=== PATIENT | female | born 1965 | race Two or more races ===

== ENCOUNTER 2017-09-23 18:28 | Emergency (ER) | payer OTHER ==
[~2017-09-23] VITALS: Ht 152.4 cm; Wt 86.2 kg
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
[2017-09-23] MEDS ORDERED: Ketorolac 30mg Inj IM ONE (19:00)
[2017-09-23] MEDS ORDERED: TYLENOL EXTRA500 MG ORAL (19:31)
[2017-09-23 19:40] VITALS: BP 150/95
--- NOTE | 2017-09-24 08:50 | Diagnostic Imaging Report ---
Indication: Foot pain Technique: 3 views left foot Comparison: None Findings: No acute fractures. No dislocations. Joint spaces are preserved. There is a plantar spur. Well-corticated ossific density adjacent to the cuboid is consistent with an accessory ossicle Impression: Negative
== END 2017-09-23 19:40 | disposition home or self-care (01) ==
LOC: EMR 19:09
DX: S92.902A Unspecified fracture of left foot, initial encounter for closed fracture (principal); Z88.1 Allergy status to other antibiotic agents; E78.5 Hyperlipidemia, unspecified; E11.9 Type 2 diabetes mellitus without complications; V43.52XA Car driver injured in collision with other type car in traffic accident, initial encounter; Y92.410 Unspecified street and highway as the place of occurrence of the external cause
CPT/HCPCS: 29515; 73630; 96372; 99283; J1885